=== PATIENT | female | born 1995 | race Caucasian/White ===

== ENCOUNTER 2018-01-21 06:32 | Outpatient (CLI) | payer OTHER, MEDICAID ==
[~2018-01-21] VITALS: Ht 167.6 cm; Wt 70.0 kg
[2018-01-21] MEDS ORDERED: ZOFRAN 4MG T4 MG/TAB PO (06:48)
[2018-01-21] MEDS ORDERED: IRON TABLETS325 MG PO (06:49)
[2018-01-21] MEDS ORDERED: TUMS500 MG (06:49)
[2018-01-21 06:50] VITALS: BP 130/91; PULSE 71; TEMP 97.6
[2018-01-21 07:30] VITALS: BP 127/92; PULSE 78
[2018-01-21 08:00] VITALS: BP 139/86; PULSE 100
[2018-01-21 08:30] VITALS: BP 111/73; PULSE 76
[2018-01-21 08:55] VITALS: BP 130/79; PULSE 97
== END 2018-01-21 09:10 | disposition home or self-care (01) ==
LOC: LDRO 06:32
DX: O32.1XX0 Maternal care for breech presentation, not applicable or unspecified (principal); Z3A.37 37 weeks gestation of pregnancy
CPT/HCPCS: J3105

== ENCOUNTER 2018-01-24 20:26 | Outpatient (CLI) | payer OTHER, MEDICAID ==
[~2018-01-24] VITALS: Ht 167.6 cm; Wt 154.0 kg
[~2018-01-24 20:26] MED LIST: IRON TABLETS325 MG PO; TUMS500 MG; ZOFRAN 4MG T4 MG/TAB PO
[2018-01-24 20:51] VITALS: BP 131/84; PULSE 82; TEMP 98.3
[2018-01-24 21:30] VITALS: BP 120/77; PULSE 89
[2018-01-24 22:07] VITALS: BP 119/77; PULSE 82
[2018-01-25] MEDS ORDERED: PERCOCET 325 MG1 TA2 PO (11:10)
[2018-01-25] MEDS ORDERED: MOTRIN 800800 MG/TAB PO (11:10)
== END 2018-01-24 22:12 ==
LOC: LDRO 20:26
DX: O62.9 Abnormality of forces of labor, unspecified (principal); Z3A.38 38 weeks gestation of pregnancy

== ENCOUNTER 2018-01-25 10:20 | Inpatient (IN) | payer OTHER, MEDICAID ==
[2018-01-25] VITALS (22 sets, daily range): BP systolic 111–126; BP diastolic 61–82; PULSE 65–100; TEMP 97.6–98.5
[~2018-01-25] VITALS: Ht 160 cm; Wt 67.7 kg
[2018-01-25] MEDS ORDERED: PERCOCET 325 MG1 TA2 PO (11:10)
[2018-01-25] MEDS ORDERED: MOTRIN 800800 MG/TAB PO (11:10)
[2018-01-25 11:19] LABS: BASO % 0.6 % (0.0-2.0); EOS % 0.6 % (0-4.0); GRAN # 3.4 (1.4-6.5); GRAN % 71.8 % (42.2-75.2); LYMPH # 0.7 (1.2-3.4); LYMPH % 15.2 % (20.0-51.0); MEAN CELL VOLUME 83 fl (80.0-95.0); MEAN CORPUSCULAR HGB CONC 32 g/dl (33.0-37.0); MEAN PLATELET VOLUME 9.9 fl (7.4-10.4); MONO # 0.5 (0.1-0.6); MONO % 11.4 % (1.7-9.3); PLATELET COUNT 247 K/mm3 (130-400); RED BLOOD COUNT 3.61 M/mm3 (4.10-5.30); REDCELL DISTRIBUTION WIDTH-CV 13.5 % (11.5-14.5)
[2018-01-25 11:21] LABS: HEMOGLOBIN 9.7 g/dl (12.0-15.0); MEAN CORPUSCULAR HEMOGLOBIN 27 pg (26.0-32.0)
[2018-01-26 00:30] VITALS: BP 122/78; PULSE 77; TEMP 98.2
[2018-01-26 03:10] VITALS: BP 125/72; PULSE 76; TEMP 98.1
[2018-01-26 06:17] LABS: HEMATOCRIT 28.2 % (35.0-45.0)
[2018-01-26 06:30] VITALS: BP 118/78; PULSE 71; TEMP 98.6
[2018-01-26 10:30] VITALS: BP 113/70; PULSE 72; TEMP 97.8
[2018-01-26 16:09] VITALS: BP 121/81; PULSE 75; TEMP 98.5
[2018-01-26 19:45] VITALS: BP 130/93; PULSE 68; TEMP 97.9
[2018-01-27 09:23] VITALS: BP 114/72; PULSE 68; TEMP 97.7
== END 2018-01-27 12:50 | disposition home or self-care (01) | DRG 765 ==
LOC: LDRO 10:20 → LDR 10:30 → OB 10:30
PROVIDERS: Obstetrics & Gynecology
PROC: 10D00Z1 Extraction of Products of Conception, Low, Open Approach (ICD-10-PCS; principal; 2018-01-25)
DX: O64.1XX0 Obstructed labor due to breech presentation, not applicable or unspecified (principal); D62 Acute posthemorrhagic anemia; O99.02 Anemia complicating childbirth; O69.1XX0 Labor and delivery complicated by cord around neck, with compression, not applicable or unspecified; Z3A.38 38 weeks gestation of pregnancy; Z37.0 Single live birth
CPT/HCPCS: J0690; J1885; J2270; J2370; J2405; J2590; J7120

== ENCOUNTER 2022-02-27 08:09 | Emergency (ER) | payer OTHER, MEDICAID ==
[~2022-02-27] VITALS: Ht 172.7 cm; Wt 62.7 kg
[~2022-02-27 08:09] MED LIST changes: +MOTRIN 800800 MG/TAB PO; +PERCOCET 325 MG1 TA2 PO
[2022-02-27 08:11] VITALS: TEMP 98.4
[2022-02-27 08:40] LABS: BASO % 0.5 % (0.0-2.0); EOS # 0.1 K/mm3 (0.0-0.7); EOS % 1.3 % (0.0-4.0); GRAN # 3.5 K/mm3 (1.4-6.5); GRAN % 63.6 % (42.2-75.2); HEMOGLOBIN 10.8 g/dl (12.5-16.0); LYMPH # 1.5 K/mm3 (1.2-3.4); LYMPH % 26.4 % (20.0-51.0); MEAN CELL VOLUME 84 fl (80.0-100.0); MEAN CORPUSCULAR HEMOGLOBIN 29 pg (27-31); MEAN CORPUSCULAR HGB CONC 35 g/dl (33.0-37.0); MEAN PLATELET VOLUME 8.9 fl (7.4-10.4); MONO # 0.4 K/mm3 (0.1-0.6); MONO % 7.8 % (1.7-9.3); PLATELET COUNT 223 K/mm3 (130-400); RED BLOOD COUNT 3.73 M/mm3 (4.10-5.30); REDCELL DISTRIBUTION WIDTH-CV 11.5 % (11.5-14.5)
[2022-02-27 08:46] LABS: HEMATOCRIT 31.2 % (37.0-47.0)
[2022-02-27 08:56] LABS: ALBUMIN 3.4 gm/dL (3.5-5.0); BILIRUBIN,TOTAL 0.4 mg/dL (0.2-1.2); C-REACTIVE PROTEIN 0.49 mg/dL (0.00-0.50); CALCIUM 8.4 mg/dL (8.4-10.2); CREATININE, serum 0.58 mg/dL (0.57-1.11)
[2022-02-27 09:29] LABS: COLLECTION METHOD CLEAN CATCH
[2022-02-27 09:40] LABS: MUCOUS Present (NOT PRESENT); PH 6 (5-8); SQUAMOUS EPITHELIAL 0-2 /hpf (0-10); URINE APPEARANCE Hazy (CLEAR/HAZY); URINE BACTERIA Rare /hpf (NONE SEEN); URINE BILIRUBIN Negative (NEGATIVE); URINE BLOOD 1+ (NEGATIVE); URINE COLOR Yellow (YELLOW); URINE GLUCOSE Negative (NEGATIVE); URINE KETONE 2+ (NEGATIVE); URINE LEUKOCYTE ESTERASE Negative (NEGATIVE); URINE NITRATE Negative (NEGATIVE); URINE PROTEIN(semi-quant) 1+ (NEGATIVE)
[2022-02-27] MEDS ORDERED: MACROBID 1100 MG/CAP PO (10:59)
[2022-02-27 11:37] VITALS: BP 114/76; PULSE 77
== END 2022-02-27 11:58 | disposition home or self-care (01) ==
LOC: COL.ER 08:09
PROVIDERS: Family Medicine
DX: O21.0 Mild hyperemesis gravidarum (principal); O23.41 Unspecified infection of urinary tract in pregnancy, first trimester; N39.0 Urinary tract infection, site not specified; O26.891 Other specified pregnancy related conditions, first trimester; R03.1 Nonspecific low blood-pressure reading; Z87.891 Personal history of nicotine dependence; Z3A.13 13 weeks gestation of pregnancy
CPT/HCPCS: J0696; J2550; J7120

== ENCOUNTER 2022-03-27 09:38 | Emergency (ER) | payer OTHER, MEDICAID ==
[~2022-03-27] VITALS: Ht 172.7 cm; Wt 56.4 kg
[~2022-03-27 09:38] MED LIST changes: +MACROBID 1100 MG/CAP PO
[2022-03-27 10:00] VITALS: TEMP 98.6
[2022-03-27 11:38] LABS: CALCIUM 8.4 mg/dL (8.4-10.2); CREATININE, serum 0.6 mg/dL (0.57-1.11); MAGNESIUM 1.5 mg/dL (1.6-2.6)
[2022-03-27] MEDS ORDERED: DICLEGIS PO (13:19)
[2022-03-27] MEDS ORDERED: ZANTAC-360 (FAM20 MG PO (13:51)
[2022-03-27 13:53] VITALS: BP 106/71; PULSE 95
== END 2022-03-27 13:55 | disposition home or self-care (01) ==
LOC: COL.ER 09:38
PROVIDERS: Emergency Medicine
DX: O21.0 Mild hyperemesis gravidarum (principal); O99.282 Endocrine, nutritional and metabolic diseases complicating pregnancy, second trimester; E83.42 Hypomagnesemia; E87.6 Hypokalemia; Z87.891 Personal history of nicotine dependence; Z3A.18 18 weeks gestation of pregnancy; Z28.310 Unvaccinated for COVID-19
CPT/HCPCS: J2765; J3475; J3480; J7120

== ENCOUNTER 2022-04-17 11:20 | Inpatient (IN) | payer OTHER, MEDICAID ==
[2022-04-17] VITALS (27 sets, daily range): BP systolic 103–132; BP diastolic 55–86; PULSE 60–105; TEMP 98.8–98.9
[~2022-04-17] VITALS: Ht 170.2 cm; Wt 61.8 kg
[~2022-04-17 11:20] MED LIST changes: +DICLEGIS PO; +ZANTAC-360 (FAM20 MG PO
--- NOTE | 2022-04-17 11:35 | NUR ---
Patient ambulatory to LR2 with significant other, changed into gown, and TOCO placed/VSS. Patient here for 17 week demise from clinic. Patient states she does not have any leaking of fluid, vaginal bleeding, regular contractions. She states she is feeling tightening similar to jennifer allred. Plan of care discussed. Assessments done and consents signed. loss folder given and discussed. Questions answered. Patient already admitted with IV in left antecubital, placed 04/16/22, this IV flushed at this time and flushes easily. 1205: Dr. Fierro at bedside and plan of care discussed. 1208: Cytotec placed vaginally and patient tolerates well. 1245: Patient states she is feeling period like cramps.
[2022-04-17] MEDS ORDERED: MIRALAX PA17 GM/Dose PO (11:46)
[2022-04-17] MEDS ORDERED: PEPCID 20M20 MG/2 ML IV (11:46)
[2022-04-17] MEDS ORDERED: ZOFRAN INJ4 MG/2 ML IV (11:46)
[2022-04-17] MEDS ORDERED: TYLENOL 500MG500 MG PO (11:47)
[2022-04-17 13:24] LABS: BASO % 0.5 % (0.0-2.0); EOS % 0.7 % (0.0-4.0); GRAN # 2.9 K/mm3 (1.4-6.5); GRAN % 67.4 % (42.2-75.2); HEMOGLOBIN 10.2 g/dl (12.5-16.0); LYMPH # 1.1 K/mm3 (1.2-3.4); LYMPH % 25.2 % (20.0-51.0); MEAN CELL VOLUME 89 fl (80.0-100.0); MEAN CORPUSCULAR HEMOGLOBIN 29 pg (27-31); MEAN CORPUSCULAR HGB CONC 33 g/dl (33.0-37.0); MEAN PLATELET VOLUME 8.7 fl (7.4-10.4); MONO # 0.3 K/mm3 (0.1-0.6); PLATELET COUNT 236 K/mm3 (130-400); REDCELL DISTRIBUTION WIDTH-CV 14.6 % (11.5-14.5)
[2022-04-17 13:44] LABS: ALBUMIN 3.3 gm/dL (3.5-5.0); BILIRUBIN,TOTAL 0.7 mg/dL (0.2-1.2); CALCIUM 8.5 mg/dL (8.4-10.2); CREATININE, serum 0.47 mg/dL (0.57-1.11); TOTAL PROTEIN 6.3 gm/dL (6.2-8.1)
[2022-04-17 14:29] LABS: THYROID STIMULATING HORMONE 1.655 uIU/mL (0.350-4.940)
--- NOTE | 2022-04-17 15:55 | NUR ---
Dr. Fierro at bedside and assessing patient. 1559: SVE per physician 0-1/70/-1 and AROM attempted and unsuccessful. Plan of care updated. 1615: Patient requesting epidural and C. Issac MUCKER COFFERDAM notified. 1630: Patient right lateral and C. Issac MUCKER COFFERDAM at bedside. 1634: Single shot given and patient tolerates well. Catheter in blood vessel and catheter removed. 1645: Patient sitting up and C.Issac MUCKER COFFERDAM placing epidural and patient tolerates well. Plan of care and safety precautions discussed.
--- NOTE | 2022-04-17 17:25 | NUR ---
Dr. Fierro at bedside and assessing patient. 1730: SVE-1 and AROM attemtped, patient not comfortable with SVE/attempt of AROM. AROM unsuccessful and plan of care updated. Jhoana Davenport CRNA notified and at bedside to dose patient. 1745: Patient more comfortable with epidural and agrees for this RN to place crespo cather. Catheter placed and patient tolerates well and comfortable. 1750: Dr. Fierro at bedside. 1753: SVE-1/70/-2 and AROM at this time with brown fluid noted. Patient tolerates well. 1756: Patient states that she is lightheaded and nauseated. Blood pressure-102/52 and recheck 116/55. Patient states she is feeling better but has a pounding head ache. Dr. Fierro at nurses station and updated. Orders for tylenol, see EMAR. 181: Bedside report given to Lizbeth Phillip RN.
--- NOTE | 2022-04-17 19:30 | NUR ---
Dr. Fierro at bedside. Crespo bulb inserted at this time with standard crespo kit. 30 mL inserted in balloon. SVE . 400 mcg placed to posterior fornix of vagina at this time. Crespo bulb attached to leg with tape.
--- NOTE | 2022-04-17 23:45 | NUR ---
400 mcg of cytotec placed to posterior fornix of vagina. Cervix remains 1- with crespo bulb in place. Traction applied to crespo bulb and taped to leg. Plan of care reviewed with patient. Positioned to left lateral with pillow support.
[2022-04-18] VITALS (63 sets, daily range): BP systolic 79–139; BP diastolic 38–83; PULSE 58–104; TEMP 97.7–102.8
--- NOTE | 2022-04-18 03:38 | NUR ---
600 mcg cytotec placed to posterior fornix of vagina. Cervix 1-2/80 in a more anterior position than previous exam. Crespo bulb remains in place. Traction applied to crespo bulb and retaped to leg. Pt positioned to right lateral with pillow support. Plan of care reviewed with patient.
--- NOTE | 2022-04-18 07:00 | NUR ---
C/O back labor, pressure in bottom. Repeat SVE at this time, remains unchanged. PCEA button pushed. Will check on patient comfort level in 10 minutes.
--- NOTE | 2022-04-18 07:25 | NUR ---
Patient verbalizes still feeling a lot of back labor, and rectal pressure. Cartwright bulb deflated, removed at this time. Repeat SVE remains FT/50. Patient reports feeling a lot of exam, despite having pushed PCEA button twice. JOSE Dye, notified. She states she will administer bolus dose.
--- NOTE | 2022-04-18 09:10 | NUR ---
Current LR bag switched out for warm LR bag with explanation to patient that pitocin fluid is cold. Encouraged patient to let this telegraphic typewriter operator chief know if she begins to feel really cold, could provide warm blankets and/or bear hugger. Verbalizes understanding.
--- NOTE | 2022-04-18 09:12 | NUR ---
High dose pitocin protocol started at this time with explanation to patient and spouse. Verbalizes understanding. Note patient tearful at this time, asking if D&E required if she will be able to hold the baby. explains surgical procedure, and likely option would be cremation, burial, but unable to give specifics, as that procedure is not practiced in this facility.
--- NOTE | 2022-04-18 10:03 | NUR ---
Rate of pitocin increased to 200mU/min at this time. Patient c/o intermittent vaginal pressure. Encouraged to let this teletypewriter installer know if pressure becomes constant. Patient pushes PCEA button at this time. Will check back in 10 minutes to see if patient needs a heavier bolus dose.
--- NOTE | 2022-04-18 11:04 | NUR ---
Rate of pitocin increased to 300mU/min.
--- NOTE | 2022-04-18 11:05 | NUR ---
Zofran 4 mg IVP administered for c/o nausea. Cool washcloth provided.
--- NOTE | 2022-04-18 11:30 | NUR ---
Repeat SVE by . Report one of fetus' limbs through the cervix.
--- NOTE | 2022-04-18 12:20 | NUR ---
High dose pitocin infusion complete. in with repeat SVE, places Cytotec 600 mcg vaginally with explanation to patient. Verbal order received for PCNG prophylaxis with prolonged rupture of membranes.
--- NOTE | 2022-04-18 13:20 | NUR ---
Repositioned to right lateral with peanut ball.
[2022-04-18 13:22] LABS: LUPUS ANTICOAGULANT INR 0.9 (0.7-1.3); LUPUS ANTICOAGULANT PT 12.6 Seconds (())
--- NOTE | 2022-04-18 16:00 | NUR ---
SCDs applied, as noted, patient edematous, and has been on bed rest for over 24 hours.
--- NOTE | 2022-04-18 16:45 | NUR ---
Note order for high dose pitocin not yet verified by pharmacy. This video game script writer calls pharmacist to ask about repeating the dose, if he has any information on safety of this, as noted, no policy or protocol in place. He states he does not know much about it but will look into it, but to assume it is safe unless this video game script writer hears back from him.
[2022-04-18 16:48] LABS: COLLECTION METHOD IN
--- NOTE | 2022-04-18 16:55 | NUR ---
Arpan, pharmacist tells this television script writer he found literature that it is not safe to give more than 30 units of pit in a 12 hour period. This television script writer requests he communicate that to physician.
[2022-04-18 17:00] LABS: MUCOUS Present (NOT PRESENT); PH 8 (5-8); SQUAMOUS EPITHELIAL None Seen /hpf (0-10); URINE APPEARANCE Clear (CLEAR/HAZY); URINE BACTERIA None Seen /hpf (NONE SEEN); URINE BILIRUBIN Negative (NEGATIVE); URINE BLOOD 3+ (NEGATIVE); URINE COLOR Yellow (YELLOW); URINE GLUCOSE Negative (NEGATIVE); URINE KETONE 2+ (NEGATIVE); URINE LEUKOCYTE ESTERASE Negative (NEGATIVE); URINE NITRATE Negative (NEGATIVE); URINE PROTEIN(semi-quant) Negative (NEGATIVE); URINE RBC >50 /hpf (0-2)
--- NOTE | 2022-04-18 17:10 | NUR ---
Pit start @ 100mU/min.
--- NOTE | 2022-04-18 17:15 | NUR ---
Note patient tearful with back labor. Will await JOSE Ceballos, arrival.
--- NOTE | 2022-04-18 17:30 | NUR ---
JOSE Ceballos, here to administer bolus dose.
--- NOTE | 2022-04-18 17:39 | NUR ---
High dose pitocin restarted @ 100 mU/min.
--- NOTE | 2022-04-18 17:40 | NUR ---
Lasix 10 mg IVP administered with explanation to patient and spouse. Verbalize understanding.
--- NOTE | 2022-04-18 18:05 | NUR ---
This tag writer speaks with , after she spoke with Arpan, pharmacist. This tag writer discusses wording of current order, and that per order, appears we could give much more pitocin than we have given previously, that order was interpreted wrongly earlier in day. Order read out loud to physician. Will restart high dose pitocin. notified this tag writer has placed SCDs on patient, and has concerns for potential for developing pulmonary edema secondary to all of the fluid and pitocin she has received. Discussed patient edematous on physical assessment, lung sounds clear. Order received for Lasix [address]Weber mejia Ceballos CRNA, has been notified that patient is feeling no relief with epidural block at this time, and that she is on her way in to administer bolus dose.
--- NOTE | 2022-04-18 18:44 | NUR ---
Rate of pitocin increased to 200mU/min. Bedside report completed. MACARENA Avery to resume care. Patient informed plans to evaluate at 1900.
--- NOTE | 2022-04-18 18:50 | NUR ---
Dr Fierro into room. [address] Fierro reveals " alot of the baby is through the cervix." Cervical manipulation by Dr Fierro until fetus delivers at 185. Cord clamped and cut by Dr Fierro. Pt tolerating exam well unaware of delivery of baby. informs pt and spouse twice before they realize delivery occurred. Pt and spouse appropriately tearful. Dr Fierro continues with pt while this nurse takes fetus to nsy per parents' request. 1907 Placenta delivers with traction by Dr Fierro. Trailing membranes delivered by Dr Fierro. [address] Fierro yields "placenta pieces" 1912 After continued Bimanual exam with more pieces, Dr Fierro uses currette to retrieve small pieces. 1915 currette removed. Instruments and sponge counts correct.
[2022-04-18] MEDS ORDERED: MOTRIN 800800 MG/TAB PO ×2 (19:39)
--- NOTE | 2022-04-18 20:55 | NUR ---
Baby brought into room, pt loving and tearful. Holds baby, tearful, takes pictures.
--- NOTE | 2022-04-18 21:55 | NUR ---
Contacted [facility], spoke with [place]. [facility] Referral # [id number]
[2022-04-19] VITALS (8 sets, daily range): BP systolic 90–114; BP diastolic 53–70; PULSE 66–100; TEMP 98–100
--- NOTE | 2022-04-19 00:30 | NUR ---
Pt sleeping, cradling baby. Unaware of nurse's presence in room.
[2022-04-19 00:51] LABS: BETA-2 GPI IGG AABS <20.0 CU (<=20.0); BETA-2 GPI IGM AABS <20.0 CU (<=20.0)
--- NOTE | 2022-04-19 02:20 | NUR ---
Discussed with pt plan to transfer to new room with double bed. Pt asks " can we stay in this room til later this morning? We are both very tired. Will a double bed be available later?" Reassured pt that she could move to her new room later. IV to INT, Gabbie welch, pericare done, pad and paced placed. 0245 Pt requests to move to new room. Pivot transfer to wheelchair, to room. Oriented to room, plan of care. Instructed to call for assistance when needs to get up to bathroom. Verbalizes understanding
[2022-04-19 06:23] LABS: MEAN CELL VOLUME 89 fl (80.0-100.0); MEAN CORPUSCULAR HGB CONC 33 g/dl (33.0-37.0); MEAN PLATELET VOLUME 9.1 fl (7.4-10.4); PLATELET COUNT 157 K/mm3 (130-400); RED BLOOD COUNT 2.72 M/mm3 (4.10-5.30); REDCELL DISTRIBUTION WIDTH-CV 14.7 % (11.5-14.5)
[2022-04-19 06:32] LABS: HEMATOCRIT 24.1 % (37.0-47.0); HEMOGLOBIN 7.9 g/dl (12.5-16.0); MEAN CORPUSCULAR HEMOGLOBIN 29 pg (27-31)
[2022-04-19 06:39] LABS: ALBUMIN 2.1 gm/dL (3.5-5.0); BILIRUBIN,TOTAL 0.8 mg/dL (0.2-1.2); CALCIUM 7.6 mg/dL (8.4-10.2); CREATININE, serum 0.54 mg/dL (0.57-1.11); TOTAL PROTEIN 4.1 gm/dL (6.2-8.1)
[2022-04-19 06:50] LABS: POTASSIUM 2.7 mmol/L (3.5-4.5)
[2022-04-19 07:57] LABS: BAND 20 % (0-10); LYMPHOCYTE 3 % (20.0-51.0); METAMYELOCYTE 1 % (0-0); NEUTROPHILS 75 % (42.0-75.2); PLATELET ESTIMATE NORMAL (NORMAL)
--- NOTE | 2022-04-19 10:47 | NUR ---
PER MOTHERS REQUEST, [facility] NOTIFIED THAT MOTHER IS REQUESTING TO RELEASE THE DEMISE TO THEIR CARE. HOME IS FINISHING UP A GRAVESIDE SERVICE AND WILL BE AT THE FACILITY IN APPROXIMATELY 1.5 HOURS. ALL APPROPRIATE PAPERWORK REVIEWED, SIGNED BY FAMILY AND PENDING HOME SIGNATURES AT THIS TIME. FAMILY DENIES FURTHER QUESTIONS OR CONCERNS AND STATES THEY DO NOT WANT TO HOLD OR SPEND ANYMORE TIME WITH THROUGHOUT THIS HOSPITAL STAY.
--- NOTE | 2022-04-19 11:00 | NUR ---
PHOTOS OF DEMISE INFANT TAKEN AT THIS TIME PER MOTHERS REQUEST ON FACILITIES PROFESSIONAL CAMERA BY THIS NURSE. PT DOES NOT WISH TO VIEW PHOTOS AT THIS TIME OR SPEND FURTHER TIME WITH INFANT, BUT STATES SHE WANTS PHOTOS "FOR A FURTHER DATE POSSIBLY." DENIES FURTHER REQUESTS OR CONCERNS AT THIS TIME. PT REMAINS IN STABLE CONDITION, TEARFUL AT TIMES BUT TALKS ABOUT AND IS COPING WELL.
--- NOTE | 2022-04-19 12:40 | NUR ---
1240: BODY RELEASED TO [facility] AT THIS TIME PER MOTHER REQUEST.
--- NOTE | 2022-04-19 16:49 | NUR ---
PT DENIES NAUSEA, BUT HAS HAD MULTIPLE EPISODES OF LOOSE DIARRHEA FOLLOWING ANY TYPE OF FOOD INTAKE. HOLDING PO SENNA AT THIS TIME. WILL NOTIFY PROVIDER IF DIARRHEA CONTINUES. PT STATES "I HAVE NOT BEEN ABLE TO EAT OR POOP IN SO MANY WEEKS, I THINK IT FEELS LIKE MY BODY JUST ISN'T USED TO ME EATING AND NOT PUKING THROUGHOUT THE DAY WHILE I WAS ." PT AFEBRILE, VITAL SIGNS STABLE. LOCHIA SCANT. WILL CONTINUE TO MONITOR.
--- NOTE | 2022-04-19 17:25 | NUR ---
CALL TO TO UPDATE ON PT'S DIARRHEA EPISODES AND TO REVIEW IV ABX DOSAGES AND DURATION OF SCHEDULE. SEE PHYS NOTIFICATION.
[2022-04-20 01:00] VITALS: BP 99/62; PULSE 87; TEMP 98.8
[2022-04-20 06:12] LABS: MEAN CELL VOLUME 90 fl (80.0-100.0); MEAN CORPUSCULAR HGB CONC 33 g/dl (33.0-37.0); PLATELET COUNT 154 K/mm3 (130-400); REDCELL DISTRIBUTION WIDTH-CV 15.1 % (11.5-14.5)
[2022-04-20 06:22] LABS: HEMATOCRIT 25.2 % (37.0-47.0); HEMOGLOBIN 8.2 g/dl (12.5-16.0); MEAN CORPUSCULAR HEMOGLOBIN 29 pg (27-31)
[2022-04-20 06:28] LABS: CALCIUM 7.9 mg/dL (8.4-10.2); CREATININE, serum 0.46 mg/dL (0.57-1.11)
[2022-04-20 06:32] LABS: POTASSIUM 2.9 mmol/L (3.5-4.5)
[2022-04-20 07:30] LABS: ANISOCYTOSIS 1+; BAND 12 % (0-10); EOSINOPHIL 2 % (0-4); HYPOCHROMIA 1+; LYMPHOCYTE 9 % (20.0-51.0); NEUTROPHILS 77 % (42.0-75.2); PLATELET ESTIMATE NORMAL (NORMAL)
[2022-04-20 07:40] VITALS: BP 160/90; PULSE 76; TEMP 98
[2022-04-20 08:00] VITALS: BP 94/52; PULSE 79; TEMP 97.8
--- NOTE | 2022-04-20 11:05 | NUR ---
AT BEDSIDE DISCUSSING POC. RECOMMENDS PT STAY UNTIL TOMORROW AM, FINISH THIS MORNINGS IV ABX, BEGIN PO THIS EVENING, AND ENSURE PT CONTINUES TO BE ABLE TO TOLERATE PO INTAKE. PT REQUESTING ONE MORE EVENING AND AGREEABLE WITH CURRENT POC.
--- NOTE | 2022-04-20 14:30 | NUR ---
THIS NURSE CALLED TO PT'S ROOM. PT SITTING UP IN BED DRY HEAVING AND C/O N&V. NO FOOD INTAKE SINCE TOAST THIS AM PROVIDED BY THIS NURSE. NOTIFIED . SEE PHYSICIAN NOTIFICATION.
[2022-04-20 16:20] VITALS: BP 107/63; PULSE 76; TEMP 98.4
--- NOTE | 2022-04-20 16:28 | NUR ---
PT CONTINUES TO FEEL NAUSEOUS AT THIS TIME. SECOND DOSE OF ZOFRAN ODT PROVIDED PER ORDER. COOL WASH CLOTH TO FOREHEAD WITH PEPPERMINT OIL PROVIDED. PRN MAALOX OFFERED AND PROVIDED FOR "BURNING" IN PT'S THROAT FROM EMESIS AND DRY HEAVING. VITAL SIGNS STABLE. PT AFEBRILE. WHEN PT BEGINS FEELING BETTER THIS NURSE IS GOING TO ASSIST HER INTO THE SHOWER PER PT REQUEST. WILL CONTINUE TO MONITOR AND UPDATE PHYSICIAN ACCORDINGLY.
--- NOTE | 2022-04-20 17:07 | NUR ---
PT IN SHOWER. BEGINNING TO FEEL "BETTER." REQUESTING TO WAIT ON CURRENT PO MEDS UNTIL SHE CAN TRY TO EAT SOME APPLESAUCE AND KEEP IT DOWN FOLLOWING SHOWER.
--- NOTE | 2022-04-20 18:11 | NUR ---
HOLDING PO ANTIBIOTIC AND IRON UNTIL PT COMPLETES A LIGHT SNACK. PT FEELING BETTER, TOLERATED A SHOWER WELL. IS GOING TO GO ON A WALK AND EAT APPLESAUCE AND CRACKERS WHEN SHE RETURNS TO HER ROOM.
[2022-04-21 06:13] LABS: BILIRUBIN,TOTAL 0.4 mg/dL (0.2-1.2); CALCIUM 7.9 mg/dL (8.4-10.2); CREATININE, serum 0.45 mg/dL (0.57-1.11); MAGNESIUM 1.5 mg/dL (1.6-2.6); POTASSIUM 3.2 mmol/L (3.5-4.5); TOTAL PROTEIN 4.1 gm/dL (6.2-8.1)
[2022-04-21] MEDS ORDERED: AMOXICILLIN/CLA1 TA1 PO ×2 (06:51)
--- NOTE | 2022-04-21 07:40 | NUR ---
AT BEDSIDE ASSESSING PT AND REVIEWING POC. VORB AT THIS TIME TO NOT GIVE ANY PO MEDS. ALL PO MEDS ON HOLD. PT TO ATTEMPT EATING TOAST AND IF ABLE TO TOLERATE FOOD, PT MAY DC THIS AFTERNOON. ABX DC'D DUE TO GI DISTRESS. PT AND FOB ANXIOUS TO GET HOME AT THIS TIME. VITAL SIGNS STABLE, PT AFEBRILE. DENIES PAIN OR NEED FOR TYLENOL OR MOTRIN AT THIS TIME. WILL CONTINUE TO MONITOR.
[2022-04-21 08:10] VITALS: BP 106/58; PULSE 68; TEMP 98.3
--- NOTE | 2022-04-21 11:05 | NUR ---
ALL DC PAPERWORK, MEDS AND APPOINTMENTS REVIEWED AND UNDERSTOOD. PT REMAINS IN STABLE CONDITION. LOCHIA SCANT, NO CLOTS. PT DENIES NAUSEA, WAS ABLE TO KEEP BREAKFAST DOWN. DENIES FURTHER NEEDS AT THIS TIME. REMINDED TO CALL THE UNIT OR [facility] WITH ANY QUESTIONS OR CONCERNS.
[2022-04-22 07:52] LABS: TOXOPLASMA AB, IGG <3.0 IU/mL (0.0-7.1); TOXOPLASMA AB, IGM <3.0 AU/mL (0.0-7.9); TOXOPLASMA IGG VALUE Negative (Negative); TOXOPLASMA IGM VALUE Negative (Negative)
== END 2022-04-21 11:05 | disposition home or self-care (01) | DRG 770 ==
LOC: LDR 11:20 → OB 04-19 02:45
PROVIDERS: Obstetrics & Gynecology; ADMIT Obstetrics & Gynecology
PROC: 10D17ZZ Extraction of Products of Conception, Retained, Via Natural or Artificial Opening (ICD-10-PCS; principal; 2022-04-18)
PROC: 10E0XZZ Delivery of Products of Conception, External Approach (ICD-10-PCS; 2022-04-18)
PROC: 3E0P7VZ Introduction of Hormone into Female Reproductive, Via Natural or Artificial Opening (ICD-10-PCS; 2022-04-18)
PROC: 10907ZC Drainage of Amniotic Fluid, Therapeutic from Products of Conception, Via Natural or Artificial Opening (ICD-10-PCS; 2022-04-18)
PROC: 3E033VJ Introduction of Other Hormone into Peripheral Vein, Percutaneous Approach (ICD-10-PCS; 2022-04-18)
DX: O02.1 Missed abortion (principal); O08.0 Genital tract and pelvic infection following ectopic and molar pregnancy; O08.5 Metabolic disorders following an ectopic and molar pregnancy; O99.03 Anemia complicating the puerperium; O21.0 Mild hyperemesis gravidarum; D64.9 Anemia, unspecified; R19.7 Diarrhea, unspecified; Z3A.17 17 weeks gestation of pregnancy
CPT/HCPCS: J0290; J1580; J1940; J2405; J2540; J2590; J3411; J7030; J7120